=== PATIENT | female | born 1995 | race African-American/Black ===

== ENCOUNTER → 2020-01-30 13:21 | Outpatient (CLI) | payer OTHER ==
[2010-08-30 07:41] VITALS: BMI 28.0
[~2020-01-30 13:21] MED LIST: MOTRIN600 MG PO; PERCOCET 5/3251 TA1 PO; PRENATAL COMPLE1 TAB PO
== END | disposition home or self-care (01) ==
LOC: D.US 13:21
PROVIDERS: ATTEND Family Medicine
DX: N63.10 Unspecified lump in the right breast, unspecified quadrant (principal)